=== PATIENT | male | born 1960 | race American Indian/Alaskan Native ===

== ENCOUNTER 2017-06-09 20:26 | Emergency (ER) | payer BC ==
[2017-06-09] MEDS ORDERED: XYLOCAINE 1% MPF 5 mL INFILTRATI ONE (23:59)
--- NOTE | 2017-06-10 00:06 | Emergency Department Report ---
Abscess Boil HPI - HPI Chief Complaint: Skin/Abscess/Foreign Body Stated Complaint: L SIDE MOUTH/FACIAL ABSCESS Duration: >1 Week Location: Other (left outer cheek) Severity: Mild (3cm) History: Yes Previous History, No Fever, No Pain, No Purulent Drainage, No Numbness, No Foreign Body, No Insect Bite HPI: 56 year old male presents to ED with chronic left outer cheek abscess over 6months. patient states abscess is intermittent. patient states he would like to have it I&D'ed tonight. patient is stable, neurologically intact and in no acute distress. Home Medications: Previous Rx's Medication Instructions Recorded Last Taken Type Cephalexin [Keflex] 500 mg PO Q12HR #10 cap 06/10/17 Unknown Rx ED Review of Systems ROS: Stated complaint: L SIDE MOUTH/FACIAL ABSCESS Other details as noted in HPI Constitutional: denies: chills, fever Eyes: denies: eye pain, eye discharge, vision change ENT: denies: ear pain, throat pain Respiratory: denies: cough, shortness of breath, wheezing Cardiovascular: denies: chest pain, palpitations Endocrine: no symptoms reported Gastrointestinal: denies: abdominal pain, nausea, diarrhea Genitourinary: denies: urgency, dysuria Musculoskeletal: denies: back pain, joint swelling, arthralgia Skin: denies: rash, lesions Neurological: denies: headache, weakness, numbness, paresthesias, confusion, abnormal gait, vertigo Psychiatric: denies: anxiety, depression Hematological/Lymphatic: denies: easy bleeding, easy bruising ED Past Medical Hx - Past Medical History Previous Medical History?: Yes Hx Diabetes: Yes - Surgical History Past Surgical History?: Yes Additional Surgical History: back surgery - Social History Smoking Status: Never Smoker Substance Use Type: Alcohol - Medications Home Medications: Home Medications Medication Instructions Recorded Confirmed Last Taken Type Cephalexin [Keflex] 500 mg PO Q12HR #10 cap 06/10/17 Unknown Rx ED Abscess Boil Physical Exam - Exam General: Vital signs noted. No distress. Alert and acting appropriately. Size: 3 cm Exam: Yes Fluctuance, Yes Normal Neurologic Exam, Yes Normal Circulation, No Tenderness, No Surrounding Cellulites/Erythema, No Lymphangitis, No Crepitation , No Heart Murmur Exam: 3cm abscess present on left outer cheek. I & D Note - I & D Note I & D Note: area prepped with betadine. 1% lidocaine utilized for numbing agent. obtained moderate amount of purulent drainage. patient tolerated procedure well. bleeding well controlled. Critical care attestation.: If time is entered above; I have spent that time in minutes in the direct care of this critically ill patient, excluding procedure time. ED Medical Decision Making - Medical Decision Making 56 year old male presents to ED with chronic abscess to left outer cheek over 6 months. patient has tolerated I&D well. patient will be placed on PO abx and agrees and understands to return within 2-3 days for recheck. ED Disposition Clinical Impression: Abscess of cheek Disposition: DC-01 TO HOME OR SELFCARE Is pt being admited?: No Does the pt Need Aspirin: No Condition: Stable Instructions: Abscess (ED) Additional Instructions: Please return to ED within 2-3 days for recheck Prescriptions: Cephalexin [Keflex] 500 mg PO Q12HR #10 cap Referrals: PRIMARY CARE, [Primary Care Provider] - 3-5 Days
[2017-06-10] MEDS ORDERED: TRIPLE ANTIBIOTIC TP ONE (01:15)
[2017-06-10 01:24] VITALS: BP 150/78
== END 2017-06-10 01:37 | disposition home or self-care (01) ==
LOC: ED 20:26
DX: L02.01 Cutaneous abscess of face (principal); E11.9 Type 2 diabetes mellitus without complications
CPT/HCPCS: 99282; A6250

== ENCOUNTER 2017-07-02 16:01 | Emergency (ER) | payer BC ==
[2017-07-02] MEDS ORDERED: TORADOL IM ONE (18:11)
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
--- NOTE | 2017-07-02 21:06 | XRay Report ---
FINAL REPORT PROCEDURE: XR SPINE LUMBOSACRAL 2-3V TECHNIQUE: Lumbar spine radiographs, frontal and lateral views. HISTORY: lumbar spinal tenderness COMPARISON: No prior studies are available for comparison. FINDINGS: Alignment: Dextroscoliosis.. Vertebral body heights/Disk spaces: Moderate degenerative change. Fracture(s): None . Facets: Facet sclerosis.. Bone mineralization: Normal . IMPRESSION: Scoliosis with degenerative change.
[2017-07-02 21:40] VITALS: BP 152/84
== END 2017-07-02 21:40 | disposition home or self-care (01) ==
LOC: ED 16:01
DX: S39.012A Strain of muscle, fascia and tendon of lower back, initial encounter (principal); I10 Essential (primary) hypertension; E11.9 Type 2 diabetes mellitus without complications; X50.0XXA Overexertion from strenuous movement or load, initial encounter; Y93.89 Activity, other specified; Y92.9 Unspecified place or not applicable; Y99.8 Other external cause status
CPT/HCPCS: 72100; 96372; 99282; J1885